=== PATIENT | male | born 1990 | race Caucasian/White ===

== ENCOUNTER 2017-03-02 07:50 | Inpatient (IN) | payer OTHER ==
--- NOTE | ~2017-03-02 | CR4 ---
[facility] A Service of [facility] RADIOLOGY TEXT RESULTS PATIENT: AQUILES MORTON LOCATION: [facility] : [birth year] UNIT #: [id number] AGE: [address]: Quintin Huff MD SEX: M ORDER DR: [id number] [id number] [facility] [address]. [place], [place] [address] [id number] MR#: [id number] Acc #: [id number] NAME: AQUILES MORTON : 1990 SEX: M STUDY DATE/TIME: 03/03/2017 11:59 UNIT: [facility] ROOM: [facility] STUDY DESCRIPTION: CR Abdomen Flat Upright or Dec Attending Physician: Quintin Huff Jr., M.D. Ordering Physician: Reese Vincent M.D. MEDICAL IMAGING REPORT This report is preliminary unless electronic signature is present EXAM Supine upright abdomen HISTORY Abdominal pain since yesterday, concern for bowel obstruction. COMPARISON 03/02/2017 FINDINGS Supine and upright views of the abdomen demonstrates a nonobstructive bowel gas pattern. Moderate amount of stool noted within the colon. IVC filter demonstrated at the L2-3 level. No organomegaly. Osseous structures unremarkable. IMPRESSION No plain film findings to suggest small bowel obstruction. Myai-zd-raqcaxzp amount of colonic stool. IVC filter in expected position. Compared to the 03/02 study, there has been removal of the patient's nasogastric tube. Please note there is some minimal distension of small bowel in the left mid abdomen but no convincing evidence of high-grade obstruction. Dictated by... Lisha Snyder M.D. THIS IS AN ELECTRONICALLY VERIFIED REPORT Lisha Snyder M.D. at 03/04/2017 12:31 PM JAMA/kimi TD: 03/04/2017 00:46 JOB #: [id number] [facility] A Service of [facility] RADIOLOGY TEXT RESULTS PATIENT: AQUILES MORTON LOCATION: [place] [address] : [birth year] UNIT #: [id number] AGE: [address]: Quintin Huff MD SEX: M ORDER DR: MEDICAL IMAGING REPORT Page 1 of 1 COPY
--- NOTE | ~2017-03-02 | CR7 ---
[facility] A Service of [facility] & [facility] RADIOLOGY TEXT RESULTS PATIENT: AQUILES MORTON LOCATION: [facility] 46-01 : [birth year] UNIT #: [id number] AGE: [address]: Quintin Huff MD SEX: M ORDER DR: [id number] [facility] [address] [facility]. [place], [place] [address] [id number] I MR#: [id number] Acc #: [id number] NAME: AQUILES MORTON : 1990 SEX: M STUDY DATE/TIME: 03/02/2017 17:58 UNIT: [facility] ROOM: [facility] STUDY DESCRIPTION: CR Abdomen Single AP View Attending Physician: Quintin Huff Jr., M.D. Ordering Physician: Quintin Huff Jr., M.D. MEDICAL IMAGING REPORT This report is preliminary unless electronic signature is present EXAM Portable abdomen HISTORY Abdomen pain today. NG tube placement. FINDINGS NG tube tip is at the level of the gastric fundus approximately 5 cm beyond the EG junction and the side-hole is positioned in the distal esophagus 2 cm above the EG junction. The tube could be advanced 10-15 cm for improved positioning in the stomach. No dilatation of the visualized bowel. The exam does not include the mid and lower pelvis. IVC filter at the L2-L3 level. Dictated by... Guanako Cardona M.D. THIS IS AN ELECTRONICALLY VERIFIED REPORT Guanako Cardona M.D. at 03/03/2017 10:56 PM DFL/to TD: 03/03/2017 13:46 JOB #: [id number] MEDICAL IMAGING REPORT Page 1 of 1 COPY
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
[2017-03-02] MEDS ORDERED: KEPPRA500 MG PO (13:01)
[2017-03-02] MEDS ORDERED: ZOLOFT100 MG PO (13:02)
[2017-03-03 02:49] LABS: HEMATOCRIT 42.9 % (38.0-50.0); HEMOGLOBIN 14.1 gm/dL (13.0-16.0); MEAN CELL VOLUME 86.7 FL (83-96); MEAN CORPUSCULAR HEMOGLOBIN 28.4 PG (28-34); MEAN CORPUSCULAR HGB CONC 32.8 g/dL (30-36); RED BLOOD COUNT 4.95 X10e (3.90-5.60); RED CELL DISTRIBUTION WIDTH 14.2 % (11.0-15.5); WHITE BLOOD COUNT 8.4 X10e3 (4.0-10.5)
[2017-03-03 03:14] LABS: BILIRUBIN,TOTAL 0.8 mg/dL (0.2-2.0); CALCIUM SERUM 8.4 mg/dL (8.4-10.2); GLOM FILT RATE Estimated 103.4 mL/min (>60); POTASSIUM 4.4 mmol/L (3.5-5.1); PROTEIN TOTAL SERUM 7.2 g/dL (6.0-8.3)
== END 2017-03-04 11:50 | disposition home or self-care (01) | DRG 390 ==
LOC: C4C 07:50
PROVIDERS: Surgery
PROC: 0DH67UZ Insertion of Feeding Device into Stomach, Via Natural or Artificial Opening (ICD-10-PCS; principal; 2017-03-02)
DX: K56.5 Intestinal adhesions [bands] with obstruction (postinfection) (principal)
CPT/HCPCS: 74000; 74020; 80053; 85027; J2270